=== PATIENT | male | born 1980 | race Caucasian/White ===

== ENCOUNTER 2018-12-23 16:50 | Emergency (ER) | payer SELFPAY ==
[~2018-12-23] VITALS: Ht 167.6 cm; Wt 74.7 kg
[2018-12-23 16:54] VITALS: Ht 167.6 cm; Wt 74.7 kg
[2018-12-23] MEDS ORDERED: KETOROLAC 30 MG INJ IM STA (18:41)
[2018-12-23] MEDS ORDERED: IBUP-1542 PO (18:42)
[2018-12-23 19:42] VITALS: BP 129/86; PULSE 65; RESP 16
--- NOTE | 2018-12-23 20:47 | ERD ---
ER Documentation Chief Complaint Chief Complaint HEADACHE, NECK PAIN, NO FEVER, NO N/V, ONSET 3 DAYS HPI Patient is a 38-year-old male with no medical problems who presents with neck pain and back pain. He said the symptoms for over 1 month but the pain was worse yesterday. This is what made him come to the emergency department. The patient has no fevers. He tried Tylenol. He denies trauma and does not know what started this pain 1 month ago. He does not currently have a primary doctor. ROS All systems reviewed and are negative except as per history of present illness. Medications Home Meds Active Scripts Ibuprofen* (Motrin*) 600 Mg Tab, 600 MG PO Q6H PRN for PAIN AND OR ELEVATED TEMP, #30 TAB Prov:CALEB MENDOZA MD 12/23/18 Allergies Allergies: Coded Allergies: No Known Allergy (Unverified , 12/23/18) PMhx/Soc Medical and Surgical Hx: pt denies Medical Hx, pt denies Surgical Hx Hx Alcohol Use: No Hx Substance Use: No Hx Tobacco Use: No Smoking Status: Never smoker FmHx Family History: No diabetes Physical Exam Vitals Vital Signs Date Temp Pulse Resp B/P (MAP) Pulse Ox O2 O2 Flow FiO2 Time Delivery Rate 12/23/18 65 16 129/86 100 Room Air 19:42 (100) 12/23/18 97.4 80 17 130/75 97 16:54 (93) Physical Exam Const: No acute distress Head: Atraumatic Eyes: Normal Conjunctiva ENT: Normal External Ears, Nose and Mouth. Neck: Full range of motion. No meningismus. Resp: Clear to auscultation bilaterally Cardio: Regular rate and rhythm, no murmurs Abd: Soft, non tender, non distended. Normal bowel sounds Skin: No petechiae or rashes Back: No midline or flank tenderness Ext: No cyanosis, or edema Neur: Awake and alert Psych: Normal Mood and Affect Results 24 hrs Current Medications Medications Dose Sig/Rogelio Start Time Status Last (Trade) Ordered Route PRN Stop Time Admin Dose Reason Admin Ketorolac 30 mg ONCE STAT 12/23/18 DC 12/23/18 Tromethamine IM 18:41 18:44 (Toradol) 12/23/18 18:42 Procedures/MDM Patient is a 38-year-old male presents with neck pain and back pain. There is no sign of focal pain at this time and I believe the patient likely has muscular skeletal back pain. I doubt epidural abscess, epidural hematoma, or cauda equina syndrome. I believe outpatient management is appropriate at this time. I do not believe patient requires further work-up or admission to the hospital at this time. The patient will be given Toradol for pain will be discharged with a prescription for ibuprofen. The patient can return for any worsening symptoms. Departure Diagnosis: Primary Impression: Back pain Back pain location: back pain in unspecified location Chronicity: acute Back pain laterality: unspecified Qualified Codes: M54.9 - Dorsalgia, unspecified Additional Impression: Headache Headache type: unspecified Headache chronicity pattern: acute headache Intractability: not intractable Qualified Codes: R51 - Headache Condition: Fair Patient Instructions: Self-Care for Headaches, Back Pain (Acute Or Chronic) [facility] Usted se peña hecho un examen mdico de control que le indica que no est en demetrius condicin que requiera tratamiento urgente en el Departamento de Emergencia. Un estudio ms profundo y el tratamiento de ponce condicin pueden esperar sin ningn riesgo hasta que usted sea atendida/o en el consultorio de ponce mdico o demetrius clnica. Es responsabilidad suya arreglar demetrius leonila para el seguimiento del jordan. MANEJO DE CONDICIONES NO URGENTES EN EL FUTURO 1) Si usted tiene un mdico de atencin primaria: Usted debera llamar a ponce mdico de atencin primaria antes de venir al departamento de emergencia. Despus de las horas de consultorio, ponce doctor o ponce asociado/a est disponible por telfono. El mdico o enfermero de alon en el servicio telefnico puede asesorarle por aracely medio para atender el problema, o jordan contrario se puede programar demetrius leonila. 2) Si usted no tiene un mdico de atencin primaria: Llame al mdico o clnica de referencia que aparece abajo chary las horas de consultorio para hacer demetrius leonila para que le vean. CLINICAS: [facility] [phone] [facility] [phone] [facility] [phone] [place] [phone] [place] [phone] [facility] [phone] [address] Additional Instructions: Llame al doctor MAANA y margarita demetrius LEONILA PARA DENTRO DE 1-2 VELOZ.Dgale a la secretaria que nosotros le instruimos hacer esta leonila.Avise o llame si ponce condicin se empeora antes de la leonila. Regresa aqui si peor o no mejor. CALEB MENDOZA MD Dec 23, 2018 20:47
== END 2018-12-23 19:43 | disposition home or self-care (01) ==
LOC: FTE 16:50
DX: M54.9 Dorsalgia, unspecified (principal)
CPT/HCPCS: 96372; 99284; J1885